=== PATIENT | male | born 1995 | race Caucasian/White ===

== ENCOUNTER 2025-06-15 18:29 | Emergency (ER) | payer OTHER ==
[~2025-06-15] VITALS: Ht 182.9 cm; Wt 104.3 kg
[2025-06-15 18:36] VITALS: PULSE 57; RESP 16; TEMP 98; O2SAT 100
[2025-06-15] MEDS ORDERED: CEPHALEXIN500 MG PO (20:17)
== END 2025-06-15 21:15 | disposition home or self-care (01) ==
LOC: ER 18:37
DX: S61.237A Puncture wound without foreign body of left little finger without damage to nail, initial encounter (principal); W31.1XXA Contact with metalworking machines, initial encounter; Y99.0 Civilian activity done for income or pay
CPT/HCPCS: 99283